=== PATIENT | female | born 1985 | race Two or more races ===

== ENCOUNTER 2019-08-23 07:47 | Day surgery (SDC) | payer OTHER ==
[2019-08-22 10:57] VITALS: BMI 25.0
[2019-08-23] MEDS ORDERED: oxyCODONE HCL 5 MG TABLET PO PRN ×4 (08:48→10:35)
[2019-08-23] MEDS ORDERED: ONDANSETRON 4 MG/2 ML VIAL IVPUSH PRN ×3 (08:48→10:33)
[2019-08-23] MEDS ORDERED: ACETAMINOPHEN 325 MG TABLET (FP) PO PRN (08:48)
[2019-08-23] MEDS ORDERED: MIDAZOLAM HCL 2 MG/2 ML SINGLE DOSE VIAL ONE (08:52)
--- NOTE | 2019-08-23 08:56 | HP ---
History & Physical Update - Physical Physical: No Change - Assessment Assessment: No Change - Plan Plan: No Change (H&P reviwed, no changes , for hysteroscopy, D&C , polypectomy)
[2019-08-23] MEDS ORDERED: LIDOCAINE HCL/PF 2% SDV 5ML VIAL ONE (08:58)
[2019-08-23] MEDS ORDERED: LACTATED RINGERS SOLUTION 1,000 ML IV SCH (09:00)
[2019-08-23] MEDS ORDERED: PROMETHAZINE HCL 25 MG/1 ML VIAL IVPUSH PRN (09:59)
[2019-08-23] MEDS ORDERED: IBUPROFEN 800 MG/8 ML IJ IVPB PRN (10:33)
[2019-08-23] MEDS ORDERED: IBUPROFEN 600 MG TABLET (FP) PO PRN (10:33)
--- NOTE | 2019-08-23 10:37 | OP ---
Operative Note - Note: Operative Date: 08/23/19 Pre-Operative Diagnosis: irregular menses, EM polyp Operation: hysteroscopy , EM polypectomy, D&C Findings: EM polyp low uterine , EM irregular Post-Operative Diagnosis: Same as Pre-op Anesthesia: General Specimens Removed: EM polyp. EMC Estimated Blood Loss (mls): 10 Drains & Tubes with Location: none Blood Volume Replaced (mls): 0 Operative Report Dictated: Yes
[2019-08-23] MEDS ORDERED: ELECTROLYTE-148 SOLN 1,000 ML IV SCH (10:45)
[2019-08-23 10:48] VITALS: TEMP 97.8
[2019-08-23 12:23] VITALS: BP 128/75; PULSE 78
--- NOTE | 2019-08-24 13:26 | OP ---
DATE OF OPERATION: 08/23/2019 PREOPERATIVE DIAGNOSES: Endometrial polyp. Irregular menses. POSTOPERATIVE DIAGNOSES: Endometrial polyp. Irregular menses. SURGEON: Clarence Moncada MD ANESTHESIA: General. ANESTHESIOLOGIST: Richard De Anda MD ESTIMATED BLOOD LOSS: 10 mL. PROCEDURES: Hysteroscopy, dilation and curettage, and polypectomy. OPERATION: The patient was taken to the operating room and had adequate general anesthesia in dorsal lithotomy position. Examination under anesthesia revealed the external genitalia to be normal. Vagina was normal. The cervix was clean, no gross lesion. Uterus was slightly prominent and anteverted. Adnexa no masses were palpable. Then, with the weighted speculum in the vagina, anterior lip of the cervix was grasped with a single-tooth tenaculum. Cervix was gradually dilated with Hegar dilator and sounded to 9 cm. Then, hysteroscope was introduced. Visualization of endocervical canal appeared to be normal. The uterus was normal and the uterine cavity appeared to be irregular endometrium with endometrial polyp in the lower anterior part of the uterus. Both cornual regions were identified and no myoma noted. Then, polyp was removed and the hysteroscope was withdrawn. Cervix was slightly more dilated and then endometrial curetting was done. Patient tolerated procedure well. Left the OR in good condition. CLARENCE MONCADA M.D. /[id number]
--- NOTE | 2019-08-24 14:25 | PATH ---
Surgical Pathology Report Patient Name: EDISON CHANG [facility]. Rec. #: [id number] /Age/Gender: 1985 (Age: 34) / F Account: [id number] Location: [facility] SUR[facility] Taken: 08/23/2019 Received: 08/23/2019 Reported: 08/24/2019 Physicians: Clarence Trevizo M.D. Specimen(s) Received A: ENDOMETRIAL POLYP B: ENDOMETRIAL CURETTINGS Clinical History Polyp of corpus uteri Final Diagnosis A. ENDOMETRIAL POLYP, EXCISION: SECRETORY TYPE ENDOMETRIUM. B. ENDOMETRIAL CURETTINGS: SECRETORY TYPE ENDOMETRIUM. Electronically Signed Dyana Arreguin M.D. Gross Description A. Received in formalin labeled "endometrial polyp," is a 2.0 x 1.4 x 0.3 cm aggregate of wyman-brown, irregular to polypoid portions of soft tissue. The specimen is submitted in toto in one cassette. B. Received in formalin labeled "endometrial curetting," is a 2.7 x 2.3 x 0.3 cm aggregate of wyman-brown soft tissue fragments. The formalin is filtered and the specimen is entirely submitted in one cassette. /08/23/2019 saudi08/23/2019
== END 2019-08-23 12:23 | disposition home or self-care (01) ==
LOC: JASU-SURG 07:47
PROVIDERS: ATTEND Obstetrics & Gynecology
PROC: 0UB98ZX Excision of Uterus, Via Natural or Artificial Opening Endoscopic, Diagnostic (ICD-10-PCS; principal; 2019-08-23 09:00)
PROC: 0UDB7ZX Extraction of Endometrium, Via Natural or Artificial Opening, Diagnostic (ICD-10-PCS; 2019-08-23 09:00)
DX: N84.0 Polyp of corpus uteri (principal)
CPT/HCPCS: 84703; 88305-TC; 94760